=== PATIENT | male | born 1955 | race Two or more races ===

== ENCOUNTER 2024-08-27 02:42 | Inpatient (IN) | payer OTHER, MEDICAID ==
[2024-08-27] VITALS (9 sets, daily range): BP systolic 140–142; BP diastolic 17–78; PULSE 62–80; RESP 14–20; TEMP 97.3–98.2; O2SAT 95–100
[~2024-08-27] VITALS: Ht 30.5 cm; Wt 80.7 kg
[2024-08-27] MEDS ORDERED: ACETAMINOPHEN 325 MG TAB PO PRN (03:45)
[2024-08-27] MEDS ORDERED: HYDROcodone-ACET 5/325MG TAB PO PRN (03:45)
[2024-08-27] MEDS ORDERED: ONDANSETRON HCL 4 MG/2 ML VIAL IV PRN (03:45)
[2024-08-27] MEDS: DEXTROSE (50%) 50ML SYRG IV ONE ×2 (07:30→14:45)
[2024-08-27 09:05] LABS: Basophils # (auto) 0 10 ^3/uL (0-0.2); Basophils % (auto) 0.4 % (0.0-2.0); Eosinophils # (auto) 0.1 10 ^3/uL (0-0.8); Eosinophils % (auto) 2.1 % (0.0-7.0); Hematocrit 23.4 % (41.0-53.0); Hemoglobin 7.2 g/dL (13.5-17.5); Mean Corpuscular Hemoglobin 23.8 pg (28.0-32.0); Mean Corpuscular Hgb Conc. 30.7 g/dL (32.0-36.0); Mean Corpuscular Volume 77.5 fL (80.0-100.0); Monocytes # (auto) 0.5 10 ^3/uL (0-1.3); Monocytes % (auto) 7.8 % (0.0-12.0); Neutrophils # (auto) 5.1 10 ^3/uL (1.6-8.6); Neutrophils % (auto) 74.7 % (37.0-80.0); Nucleated Red Blood Cells % 0.2 %; Platelet Count (auto) 294 10^3/uL (140-450); Red Blood Cells 3.02 10^6/uL (4.5-5.90); Red Cell Distribution Width 18.1 % (11.8-14.3); White Blood Cell 6.8 10^3/uL (4.4-10.8)
[2024-08-27 09:49] LABS: Albumin 3.7 g/dL (3.2-4.8); Alkaline Phosphatase 75 U/L (46-116); Anion Gap 9 (5-15); Aspartate Aminotransferase < 8 U/L (13-40); BUN/Creatinine Ratio 8.5 (10.0-20.0); Bilirubin, Total 0.2 mg/dL (0.2-1.0); Blood Urea Nitrogen 30 mg/dL (9-23); Calcium 8.9 mg/dL (8.7-10.4); Carbon Dioxide 16 mmol/L (20-31); Chloride 117 mmol/L (98-107); Glucose 78 mg/dL (74-106); Potassium 4.8 mmol/L (3.5-5.1); Sodium 142 mmol/L (136-145); Total Protein 6.4 g/dL (5.7-8.2)
[2024-08-27 09:50] LABS: Alanine Aminotransferase < 9 U/L (7-40)
[2024-08-27] MEDS: DEXTROSE 10% 250 ML IV ONE (10:22)
[2024-08-27 10:23] LABS: % Iron Saturation 6.1 % (20-55)
[2024-08-27] MEDS: DEXTROSE 10% 1,000 ML IV SCH (10:41)
[2024-08-27] MEDS: FAMOTIDINE 20 MG TAB PO SCH (10:44)
[2024-08-27] MEDS: amLODIPine BESYLATE 5 MG TAB PO SCH (10:44)
[2024-08-27] MEDS: ATENOLOL 25 MG TAB PO SCH (10:45)
[2024-08-27] MEDS ORDERED: DEXTROSE (50%) 50ML SYRG IV PRN (15:45)
[2024-08-27] MEDS: ACCU-CHEK COMFORT CURVE STRIP VI SCH (18:12)
[2024-08-27] MEDS: ENOXAPARIN SOD 30 MG/0.3 ML SYRINGE SC ONE (20:26)
[2024-08-27] MEDS: ATORVASTATIN 20 MG TAB PO SCH (21:39)
[2024-08-28 01:00] VITALS: BP 137/67; PULSE 80; RESP 20; TEMP 98; O2SAT 98
[2024-08-28 05:30] VITALS: BP 137/67; PULSE 80; RESP 20; TEMP 98; O2SAT 98
[2024-08-28 08:00] VITALS: PULSE 68
[2024-08-28 09:00] VITALS: BP 146/68; PULSE 71; RESP 20; TEMP 98.1; O2SAT 97
[2024-08-28] MEDS: ENOXAPARIN SOD 30 MG/0.3 ML SYRINGE SC SCH (10:13)
[2024-08-28 13:00] VITALS: BP 149/70; PULSE 66; RESP 17; TEMP 98.1; O2SAT 99
[2024-08-28] MEDS ORDERED: SITA50TA PO (15:02)
[2024-08-28] MEDS ORDERED: SODI650T PO (16:55)
[2024-08-28] MEDS ORDERED: FERR-7 PO (16:55)
[2024-08-28 17:00] VITALS: BP 124/63; PULSE 62; RESP 18; TEMP 98.1; O2SAT 97
== END 2024-08-28 17:41 | disposition home health service (06) | DRG 639 ==
LOC: CENTRAL 04:40 → TELE-CENTR 05:25
PROVIDERS: ADMIT Hospitalist; ATTEND Hospitalist
DX: E11.649 Type 2 diabetes mellitus with hypoglycemia without coma (principal); N17.0 Acute kidney failure with tubular necrosis; E11.22 Type 2 diabetes mellitus with diabetic chronic kidney disease; D64.9 Anemia, unspecified; E78.5 Hyperlipidemia, unspecified; H54.8 Legal blindness, as defined in USA; I12.9 Hypertensive chronic kidney disease with stage 1 through stage 4 chronic kidney disease, or unspecified chronic kidney disease; N18.4 Chronic kidney disease, stage 4 (severe); Z79.84 Long term (current) use of oral hypoglycemic drugs; Z79.899 Other long term (current) drug therapy; Z79.4 Long term (current) use of insulin
CPT/HCPCS: 36415; 76775; 80053; 82728; 82962; 83036; 83540; 83550; 85025; G0378

== ENCOUNTER 2024-12-30 04:01 | Inpatient (IN) | payer OTHER, MEDICAID ==
[~2024-12-30] VITALS: Ht 172.7 cm; Wt 90.0 kg
[2024-12-30] VITALS (7 sets, daily range): BP systolic 145–157; BP diastolic 71–76; PULSE 70–83; RESP 15–18; TEMP 98.3–98.4; O2SAT 96–97
[~2024-12-30 04:01] MED LIST: FERR-7 PO; SITA50TA PO; SODI650T PO
--- NOTE | 2024-12-30 04:31 | ED.PDOC ---
Altered Mental Status HPI Comments 69-year-old male came to ER via EMS due to altered level of consciousness/hypoglycemia. Per EMS, patient picked up at home, at around 3:00 a.m., noted by that patient was acting altered and confused. Blood sugar taken was 37 so paramedics were called. Upon their arrival, blood sugar was 32 so patient was given D10 water. Upon arrival at the ER, blood sugar went up to 185 but patient is still slight confused at this time. Patient does have history of hypertension, diabetes, CKF and is legally blind Chief Complaint: Hypoglycemia Time Seen by MD: 04:29 Reviewed Notes: Health Specialist Notes Allergies: Coded Allergies: NO KNOWN ALLERGIES (Unverified , 08/27/24) Home Meds Active Scripts Sodium Bicarbonate (Sodium Bicarbonate) 650 Mg Tab, 650 MG PO BID for 30 Days, #60 TAB 3 Refills Prov:SUHAIL SMITH MD 08/28/24 Ferrous Sulfate (Iron) 325 Mg Tab, 325 MG PO DAILY for 30 Days, #30 TAB 3 Refills Prov:SUHAIL SMITH MD 08/28/24 Sitagliptin Phosphate (Januvia) 50 Mg Tab, 0.5 TAB PO DAILY, #30 TAB 1 Refill take 1/2 tablet (25mg) daily with breakfast. Prov:KIM HALLMAN MD 08/28/24 Information Source: Patient, Emergency Med Personnel Mode of Arrival: EMS Severity: Unable to Care for Self Timing: Minutes Duration: Since onset Prehospital treatment: IVF Quality: Decreased Alertness, Change in Behavior, Confusion History of: Diabetes Review of Systems REVIEW OF SYSTEMS: (+) patient still confused and disoriented at this time No fever, no chills, or fatigue HEENT: No sore throat, no earache, no congestion, no neck pain. Cardiac: No chest pain. No palpitations. Lungs: No shortness of breath, no cough. GI: No nausea, no vomiting, no diarrhea, no constipation, no abdominal pain : No dysuria, frequency, or urgency. No hematuria. Musculoskeletal: No joint pain , no joint swelling, no extremity edema. Skin: No rash, no itching. Neuro: No headache, no dizziness, no weakness Vital Signs Vital Signs Date Time Temp Pulse Resp B/P (MAP) Pulse Ox O2 Delivery O2 Flow Rate FiO2 12/30/24 14:00 77 16 167/79 (108) 95 12/30/24 12:00 98.1 98.1 12/30/24 10:00 Nasal Cannula* 2 28 Physical Exam General: Awake, alert and oriented. No acute distress. Skin: Skin in warm, dry and intact. Appropriate color for ethnicity. Nailbeds pink with no cyanosis. HEENT: The head is normocephalic and atraumatic. Neck: The neck is supple with normal range of motion. No JVD. Cardiac: Heart rate and rhythm are normal. No murmurs, gallops, or rubs are auscultated. Respiratory: No signs of respiratory distress. Lung sounds are clear in all lobes bilaterally without rales, ronchi, or wheezes. Abdominal: Abdomen is soft, non-tender without distention. Bowel sounds are present and normoactive in all four quadrants. Extremities: Upper and lower extremities are atraumatic in appearance without deformity or edema. Neurological: The patient is awake, alert and oriented to person, place, and time with normal speech. Speech is clear. There is no facial asymmetry. Patient is following commands. Upper and lower extremity strength intact. Psychiatric: Appropriate mood and affect. Good judgement and insight. No visual or auditory hallucinations. Past Medical History PAST MEDICAL HISTORY: CKF, DM, High Lipids, HTN Past Medical History (Other): Legally blind Surgical History: Denies all surgeries Family History Family History: Reviewed,noncontributory to illness Social History Smoker: Non-Smoker Alcohol: Denies ETOH Use Drugs: Denies Drug Use Lives In: Home Was a procedure done? Was a procedure done?: No Differential Diagnosis (ALOC) Differential Diagnosis: Dehydration, Hypoglycemia, Encephalopathy, Hypoxemia, Drug Overdose, ETOH Intoxication X-Ray, Labs, Meds, VS Vital Signs Date Time Temp Pulse Resp B/P (MAP) Pulse Ox O2 Delivery O2 Flow Rate FiO2 12/30/24 14:00 77 16 167/79 (108) 95 12/30/24 12:00 98.1 79 16 171/80 (110) 95 98.1 12/30/24 11:40 83 12/30/24 10:00 92 16 180/82 (114) 95 12/30/24 10:00 97 Nasal Cannula* 2 28 12/30/24 08:00 83 16 97 Nasal Cannula* 2 28 12/30/24 08:00 79 12/30/24 08:00 98.7 81 16 154/75 (101) 95 98.7 12/30/24 05:19 93.6 93.6 12/30/24 05:00 75 16 96 Room Air* 0 21 21 12/30/24 04:01 98.0 66 16 141/72 (95) 100 Lab Test 12/30/24 14:03 12/30/24 13:12 12/30/24 11:03 12/30/24 10:07 Range/Units POC Glucose 103 33 *L 79 37 *L 70-106 mg/dl Test 12/30/24 08:55 12/30/24 08:01 12/30/24 07:07 12/30/24 06:45 Range/Units Urine Color Light-yellow Yellow Urine Clarity Clear Clear Urine pH 6.0 5.0-9.0 Urine Specific [place] 1.009 1.001-1.035 Urine Protein 1+ H Negative Urine Ketones Negative Negative Urine Blood Negative Negative /uL Urine Nitrite Negative Negative Urine Bilirubin Negative Negative Urine Urobilinogen Normal Negative mg/dL Urine Leukocyte Esterase Negative Negative /uL Urine RBC <1 0 - 3 /hpf Urine Microscopic WBC < 1 0-3 /HPF Urine Squamous Epithelial Cells None seen <5 /hpf Urine Bacteria None seen None Seen /hpf Urine Glucose Normal Normal mg/dL POC Glucose 99 77 70-106 mg/dl Influenza Type A Antigen Negative Negative Influenza Type B Antigen Negative Negative SARS-CoV-2 Antigen (Rapid) Negative NEGATIVE Test 12/30/24 06:17 12/30/24 06:13 Range/Units White Blood Count 11.6 H 4.4-10.8 10^3/uL Red Blood Count 2.47 L 4.5-5.90 10^6/uL Hemoglobin 6.1 *L 13.5-17.5 g/dL Hematocrit 19.3 L 41.0-53.0 % Mean Corpuscular Volume 77.9 L 80.0-100.0 fL Mean Corpuscular Hemoglobin 24.6 L 28.0-32.0 pg Mean Corpuscular Hemoglobin Concent 31.5 L 32.0-36.0 g/dL Red Cell Distribution Width 22.0 H 11.8-14.3 % Platelet Count 344 140-450 10^3/uL Mean Platelet Volume 7.9 6.9-10.8 fL Neutrophils (%) (Auto) 37.0-80.0 % Lymphocytes (%) (Auto) 10.0-50.0 % Monocytes (%) (Auto) 0.0-12.0 % Basophils (%) (Auto) 0.0-2.0 % Neutrophils # (Auto) 1.6-8.6 10 ^3/uL Lymphocytes # (Auto) 0.4-5.4 10 ^3/uL Monocytes # (Auto) 0-1.3 10 ^3/uL Differential Total Cells Counted 100.0 100 Neutrophils % (Manual) 83 H 37.0-80.0 Band Neutrophils % (Manual) 4 Lymphocytes % (Manual) 5 L 10.0-50.0 Monocytes % (Manual) 7 0-12 Eosinophils % (Manual) 0 0-7 Basophils % (Manual) 0 0.0-2.0 Metamyelocytes % (manual) 0 Myelocytes % (Manual) 0 Promyelocytes % (Manual) 0 Blast Cells % (Manual) 0 Reactive Lymphocytes 1 Platelet Estimate Adequate Polychromasia Slight Hypochromasia (manual) Slight Anisocytosis (manual) Moderate Microcytosis Slight Sodium Level 137 136-145 mmol/L Potassium Level 4.0 3.5-5.1 mmol/L Chloride Level 104 98-107 mmol/L Carbon Dioxide Level 23 20-31 mmol/L Anion Gap 10 5-15 Blood Urea Nitrogen 79 H 9-23 mg/dL Creatinine 4.90 H 0.700-1.30 mg/dL Glomerular Filtration Rate Calc 12 >90 mL/min BUN/Creatinine Ratio 16.1 10.0-20.0 Serum Glucose 101 74-106 mg/dL Lactic Acid Level 1.3 0.4-2.0 mmol/L Calcium Level 8.6 L 8.7-10.4 mg/dL Total Bilirubin < 0.2 L 0.2-1.0 mg/dL Aspartate Amino Transferase (AST) 9 L 13-40 U/L Alanine Aminotransferase (ALT) < 9 7-40 U/L Alkaline Phosphatase 60 46-116 U/L Total Protein 6.6 5.7-8.2 g/dL Albumin 3.9 3.2-4.8 g/dL POC Glucose 98 70-106 mg/dl Current Medications Medications (Trade) Dose Ordered Sig/Jazmyn Route Start Time Stop Time Status Last Admin Glucagon (Glucagen) 1 mg ONCE ONCE IV 12/30/24 04:45 12/30/24 04:46 DC 12/30/24 04:51 Dextrose 50 ml ONCE ONCE IV 12/30/24 04:45 12/30/24 04:46 DC 12/30/24 04:52 Sodium Chloride 1,000 ml @ 1,000 mls/hr Q1H ONCE IV 12/30/24 05:45 12/30/24 06:44 DC 12/30/24 06:15 Dextrose 1,000 ml @ 50 mls/hr Q20H ONCE IV 12/30/24 07:30 12/30/24 13:20 DC 12/30/24 07:45 Dextrose 50 ml ONCE ONCE IV 12/30/24 10:15 12/30/24 10:16 DC 12/30/24 10:17 Acetaminophen (Tylenol Tablet) 650 mg ONCE ONCE PO 12/30/24 13:15 12/30/24 13:16 DC 12/30/24 13:21 Dextrose 50 ml ONCE ONCE IV 12/30/24 13:30 12/30/24 13:31 DC 12/30/24 13:23 Dextrose 1,000 ml @ 75 mls/hr [id number] IV 12/30/24 13:30 12/30/24 14:01 DC 12/30/24 13:44 Dextrose 1,000 ml @ 75 mls/hr [id number] IV 12/30/24 14:00 12/30/24 14:20 [place] [id number] Ph: [phone] DIAGNOSTIC IMAGING Diagnostic Imaging Report : [id number] Signed PATIENT: ELO GOETZCCT: [id number] UNIT: [id number] : 1955 LOC: ER ROOM / BED: / AGE / SEX: 69 / M ADM STATUS: REG ER SERVICE [id number] ORDERING PHYSICIAN: EDEL LOVE MD PROCEDURE(s): CXR1 - CHEST XRAY 1 VIEW REASON: Suspected Sepsis ORDER NUMBER(s): [id number], ACCESSION NUMBER(s): [id number] CHEST RADIOGRAPH Indication: Suspected Sepsis Technique: Single frontal view of the chest was obtained Comparison: None IMPRESSION: Heart appears normal in size. The lungs appear clear without focal airspace opacity, effusion, or pneumothorax ATED BY: PARISH MARTINEZ MD DICTATED DATE/TIME: 12/30/24557 SIGNED BY: PARISH MARTINEZ MD SIGNED DATE/TIME: 12/30/24557 Images Reviewed?: Images reviewed and evaluated by me Time of 1ST Reevaluation: 07:03 Reevaluation 1ST: Unchanged Time of 2ND Reevaluation: 09:03 (The case was discussed with the admitting team (HPI, physical exam, labs and diagnostic tests that were available at the time o f disposition, ED course, treatment plan) on the phone. They agreed to admit the patient to their service and assume care of this patient from this point forward. Dr. Cadena) Reevaluation 2ND: Improved Patient Education/Counseling: Diagnosis, Treatment Family Education/Counseling: Diagnosis, Treatment Comments Dr. Pina admitted this patient earlier. Patient continued to have episodes of hypoglycemia. Patient was placed on D10 drip. Patient was given multiple D50 amps. Patient was found to be anemic. Patient was consented for blood transfusion. Patient had blood transfusions in the past recently last month. He said he has been having hypothermia since he got his last blood transfusion at [facility]. Patient denies any active pain anywhere. Departure 1 Departure Time of Disposition: 05:31 Impression: Primary Impression: Hypoglycemia Additional Impressions: Hypothermia Symptomatic anemia End stage renal disease Disposition: ADMITTED INPATIENT Admit to: Tele Condition: Guarded Discharged With: Self Comments 69-year-old male who presents to the emergency department with low blood sugar after taking glipizide. During the ED observation patient was found to be hypothermic with a with a temperature of 93.6. Warming measures initiated. Labs, imaging pending. Critical Care Note Critical Care Time?: Yes (55 min-critical care time only) Stability Stability form required: No Heart Score Heart Score: Heart Score Response (Comments) Value History Moderate Suspicious 1 EKG Normal 0 Age >65 2 Risk Factors >3 or Hx ASHD 2 Troponin Normal limit 0 Total 5 I personally scribed for EDEL LOVE MD ([email or web address]) on 12/30/24 at 04:31. Electronically submitted by Tylor Brand ([email or web address]). I personally scribed for JOSE C BACK DO ([email or web address]) on 12/30/24 at 07:03. Electronically submitted by Jj Lozano ([email or web address]). EDEL LOVE MD Dec 30, 2024 04:31 JOSE C BACK DO Dec 30, 2024 06:22
[2024-12-30] MEDS: STERILE WATER 10 ML ONE (04:50)
[2024-12-30] MEDS: GLUCAGON EMERG KIT 1mg/1ml IV ONE (04:51)
[2024-12-30] MEDS: DEXTROSE (50%) 50ML SYRG IV ONE ×6 (04:52→23:16)
--- NOTE | 2024-12-30 06:01 | DVH ---
CHEST RADIOGRAPH Indication: Suspected Sepsis Technique: Single frontal view of the chest was obtained Comparison: None IMPRESSION: Heart appears normal in size. The lungs appear clear without focal airspace opacity, effusion, or pn eumothorax
[2024-12-30] MEDS: SODIUM CHLORIDE 0.9% 1,000 ML IV ONE (06:15)
[2024-12-30 06:48] LABS: Hematocrit 19.3 % (41.0-53.0); Mean Corpuscular Hemoglobin 24.6 pg (28.0-32.0); Mean Corpuscular Hgb Conc. 31.5 g/dL (32.0-36.0); Mean Corpuscular Volume 77.9 fL (80.0-100.0); Platelet Count (auto) 344 10^3/uL (140-450); Red Blood Cells 2.47 10^6/uL (4.5-5.90); White Blood Cell 11.6 10^3/uL (4.4-10.8)
[2024-12-30 06:51] LABS: Albumin 3.9 g/dL (3.2-4.8); Alkaline Phosphatase 60 U/L (46-116); Anion Gap 10 (5-15); BUN/Creatinine Ratio 16.1 (10.0-20.0); Carbon Dioxide 23 mmol/L (20-31); Chloride 104 mmol/L (98-107); Glucose 101 mg/dL (74-106); Sodium 137 mmol/L (136-145); Total Protein 6.6 g/dL (5.7-8.2)
[2024-12-30 06:54] LABS: Alanine Aminotransferase < 9 U/L (7-40); Aspartate Aminotransferase 9 U/L (13-40); Bilirubin, Total < 0.2 mg/dL (0.2-1.0); Blood Urea Nitrogen 79 mg/dL (9-23); Calcium 8.6 mg/dL (8.7-10.4)
[2024-12-30 07:15] LABS: Hemoglobin 6.1 g/dL (13.5-17.5)
[2024-12-30 07:16] LABS: Basophils % (manual) 0 (0.0-2.0); Blast Cells 0; Eosinophils % (manual) 0 (0-7); Metamyelocytes % 0; Myelocytes % 0; Promyelocytes % 0
[2024-12-30] MEDS: D5W 5% 1,000 ML IV ONE (07:45)
[2024-12-30 08:02] LABS: Band Neutrophils % (manual) 4; Lymphocytes % (manual) 5 (10.0-50.0); Monocytes % (manual) 7 (0-12); Reactive Lymphocytes 1
[2024-12-30 08:04] LABS: Anisocytosis Moderate; Hypochromia Slight; Platelet Estimate Adequate; Polychromasia Slight
[2024-12-30 08:13] LABS: COVID19 ANTIGEN SOFIA FIA NEGATIVE (NEGATIVE); Rapid Influenza A Negative (Negative); Rapid Influenza B Negative (Negative)
[2024-12-30 09:06] LABS: Urine Bacteria None Seen /hpf (None Seen)
[2024-12-30 09:33] LABS: Urine Blood Negative /uL (Negative); Urine Clarity Clear (Clear); Urine Color Light-Yellow (Yellow); Urine Protein, UAD 1+ (Negative); Urine Specific Gravity 1.009 (1.001-1.035); Urine Squamous Epithelial Cell None Seen /hpf (<5); Urine Urobilinogen Normal (Negative); Urine WBC < 1 /HPF (0-3)
[2024-12-30] MEDS: ACETAMINOPHEN 325 MG TAB PO ONE ×2 (13:21→15:05)
[2024-12-30] MEDS: D5W 5% 1,000 ML IV SCH (13:44)
[2024-12-30] MEDS: DEXTROSE 10% 1,000 ML IV SCH (14:20)
[2024-12-30] MEDS ORDERED: cloNIDine HCL 0.1 MG TAB PO PRN (14:45)
[2024-12-30] MEDS ORDERED: MORPHINE SULFATE INJ 2 MG/ml SYRG IV PRN (14:45)
[2024-12-30] MEDS ORDERED: NITROGLYCERIN 0.4 MG SL TAB SL PRN (14:45)
--- NOTE | 2024-12-30 14:51 | DVHHP2 ---
History of Present Illness Reason for Visit: Low blood sugars History of Present Illness 69-year-old male came to ER via EMS due to altered level of consciousness/hypoglycemia. Per EMS, patient picked up at home, at around 3:00 a.m., noted by that patient was acting altered and confused. Blood sugar taken was 37 so paramedics were called. Upon their arrival, blood sugar was 32 so patient was given D10 water. Upon arrival at the ER, blood sugar went up to 185 but patient is still slight confused at this time. Patient does have history of hypertension, diabetes, CKF and is legally blind. He is given oral diet and D5 IV fluids. Despite this his blood sugars are still in the 70-90 range. He is also noted to be anemic with a hemoglobin of 6 spine when. Therefore he is being admitted to the hospital for further evaluation and management. Patient had a similar episode during his last hospitalization here in and of now number. At that time patient was advised to stop his metformin and glipizide. However it appears patient taking those for his blood pressure problems. Past Medical History Diabetes mellitus type 2, chronic kidney disease stage 3, anemia of chronic kidney disease, hypoglycemia, legally blind Past Surgical History: None Family History: DM, Hypertension Smoke: No ALCOHOL: rare Lives: with Family Review of Systems Review of Systems Patient appears somewhat disoriented but when asked to denied any chest pain shortness for breath. Allergies: Coded Allergies: NO KNOWN ALLERGIES (Unverified , 08/27/24) Medications Current Medications Medications Dose Ordered Sig/Jazmyn Route Start Time Stop Time Status Last Admin Dose Admin Dextrose 1,000 ml @ 75 mls/hr [id number] IV 12/30/24 14:00 12/30/24 14:20 75 MLS/HR Nitroglycerin 0.4 mg Q5MINP PRN SL 12/30/24 14:45 UNV Morphine Sulfate 2 mg Q30M PRN IV 12/30/24 14:45 UNV Ferrous Sulfate 300 mg DAILY PO 12/31/24 10:00 UNV Ascorbic Acid 500 mg DAILY PO 12/31/24 10:00 UNV Nifedipine 60 mg DAILY PO 12/31/24 10:00 UNV Clonidine HCl 0.1 mg Q4HP PRN PO 12/30/24 14:45 UNV Pantoprazole Sodium 40 mg BID@0600,1700 PO 12/30/24 17:00 UNV Exam Vital Signs Vital Signs Date Time Temp Pulse Resp B/P (MAP) Pulse Ox O2 Delivery O2 Flow Rate FiO2 12/30/24 14:00 77 16 167/79 (108) 95 12/30/24 12:00 98.1 98.1 12/30/24 10:00 Nasal Cannula* 2 28 Exam Oriented to self. Comfortable in bed without distress. HEENT neck supple no JVD pupils equal round react to light. Heart regular rate and rhythm S1 plus S2 no murmurs. Lungs fair air movement poor inspiratory effort no rales wheezes. Abdomen obese soft nontender positive bowel sounds nondistended. Extremities has a pitting edema on his feet. Positive distal pedal pulses. Neurologically oriented to self but able to move all four extremities. No gross focal deficits noted Labs/Xrays Labs Test 12/30/24 14:03 12/30/24 08:55 12/30/24 06:45 12/30/24 06:17 Range/Units POC Glucose 103 70-106 mg/dl Urine Color Light-yellow Yellow Urine Clarity Clear Clear Urine pH 6.0 5.0-9.0 Urine Specific [place] 1.009 1.001-1.035 Urine Protein 1+ H Negative Urine Ketones Negative Negative Urine Blood Negative Negative /uL Urine Nitrite Negative Negative Urine Bilirubin Negative Negative Urine Urobilinogen Normal Negative mg/dL Urine Leukocyte Esterase Negative Negative /uL Urine RBC <1 0 - 3 /hpf Urine Microscopic WBC < 1 0-3 /HPF Urine Squamous Epithelial Cells None seen <5 /hpf Urine Bacteria None seen None Seen /hpf Urine Glucose Normal Normal mg/dL Influenza Type A Antigen Negative Negative Influenza Type B Antigen Negative Negative SARS-CoV-2 Antigen (Rapid) Negative NEGATIVE White Blood Count 11.6 H 4.4-10.8 10^3/uL Red Blood Count 2.47 L 4.5-5.90 10^6/uL Hemoglobin 6.1 *L 13.5-17.5 g/dL Hematocrit 19.3 L 41.0-53.0 % Mean Corpuscular Volume 77.9 L 80.0-100.0 fL Mean Corpuscular Hemoglobin 24.6 L 28.0-32.0 pg Mean Corpuscular Hemoglobin Concent 31.5 L 32.0-36.0 g/dL Red Cell Distribution Width 22.0 H 11.8-14.3 % Platelet Count 344 140-450 10^3/uL Mean Platelet Volume 7.9 6.9-10.8 fL Neutrophils (%) (Auto) 37.0-80.0 % Lymphocytes (%) (Auto) 10.0-50.0 % Monocytes (%) (Auto) 0.0-12.0 % Basophils (%) (Auto) 0.0-2.0 % Neutrophils # (Auto) 1.6-8.6 10 ^3/uL Lymphocytes # (Auto) 0.4-5.4 10 ^3/uL Monocytes # (Auto) 0-1.3 10 ^3/uL Differential Total Cells Counted 100.0 100 Neutrophils % (Manual) 83 H 37.0-80.0 Band Neutrophils % (Manual) 4 Lymphocytes % (Manual) 5 L 10.0-50.0 Monocytes % (Manual) 7 0-12 Eosinophils % (Manual) 0 0-7 Basophils % (Manual) 0 0.0-2.0 Metamyelocytes % (manual) 0 Myelocytes % (Manual) 0 Promyelocytes % (Manual) 0 Blast Cells % (Manual) 0 Reactive Lymphocytes 1 Platelet Estimate Adequate Polychromasia Slight Hypochromasia (manual) Slight Anisocytosis (manual) Moderate Microcytosis Slight Sodium Level 137 136-145 mmol/L Potassium Level 4.0 3.5-5.1 mmol/L Chloride Level 104 98-107 mmol/L Carbon Dioxide Level 23 20-31 mmol/L Anion Gap 10 5-15 Blood Urea Nitrogen 79 H 9-23 mg/dL Creatinine 4.90 H 0.700-1.30 mg/dL Glomerular Filtration Rate Calc 12 >90 mL/min BUN/Creatinine Ratio 16.1 10.0-20.0 Serum Glucose 101 74-106 mg/dL Lactic Acid Level 1.3 0.4-2.0 mmol/L Calcium Level 8.6 L 8.7-10.4 mg/dL Total Bilirubin < 0.2 L 0.2-1.0 mg/dL Aspartate Amino Transferase (AST) 9 L 13-40 U/L Alanine Aminotransferase (ALT) < 9 7-40 U/L Alkaline Phosphatase 60 46-116 U/L Total Protein 6.6 5.7-8.2 g/dL Albumin 3.9 3.2-4.8 g/dL Assessment/Plan Assessment/Plan We will admit him to step-down unit with the frequent blood sugar monitoring till his blood sugars normalized. Start him on D10 IV glucose solution to keep blood sugars in the normal range. Nephrology consultation. Transfuse 1-2 units of packed red blood cells given his anemia. We will send a stool for occult blood. Start him on Protonix. Calcium channel sharonda for blood pressure control. Otherwise continue rest of supportive care and treatment. His further clinical management per clinical course and pending evaluations and recommendati ons from the consultants. Discussed with the patient's/nurse regarding care plan at bedside. Plan discussed with: Patient, Other My Orders Orders - KIM HALLMAN MD Procedure Category Date Status Time Renal DIET 12/30/24 Transmitted Standard(2gna,3gk,Lopho) Dinner Stool Occult Blood LAB 12/30/24 Logged 14:37 *Dr. Younger Group CONS 12/30/24 Transmitted -[place] 14:37 Accucheck BD 12/30/24 Transmitted 14:37 Accucheck BD 12/30/24 Transmitted 16:37 Accucheck BD 12/30/24 Transmitted 18:37 Accucheck BD 12/30/24 Transmitted 20:37 Accucheck BD 12/30/24 Transmitted 22:37 Accucheck BD 12/31/24 Transmitted 00:37 Accucheck BD 12/31/24 Transmitted 02:37 Accucheck BD 12/31/24 Transmitted 04:37 Accucheck BD 12/31/24 Transmitted 06:37 Accucheck BD 12/31/24 Transmitted 08:37 Accucheck BD 12/31/24 Transmitted 10:37 Accucheck BD 12/31/24 Transmitted 12:37 Accucheck BD 12/31/24 Transmitted 14:37 Accucheck BD 12/31/24 Transmitted 16:37 Accucheck BD 12/31/24 Transmitted 18:37 Accucheck BD 12/31/24 Transmitted 20:37 Accucheck BD 12/31/24 Transmitted 22:37 Nitroglycerin PHA 12/30/24 Logged Sublingual (Ntrostat 14:45 Morphine Sulfate PHA 12/30/24 Logged Injection 14:45 Stat Ekg For Chest MARCIA 12/30/24 In Process Pain 14:37 Notify Of Changes MARCIA 12/30/24 In Process From Base 14:37 Security Project Manager For MARCIA 12/30/24 In Process 24 Hours 14:37 Emergency Dysrhythmia MARCIA 12/30/24 In Process Protocol 14:37 Rhythm Strips Once MARCIA 12/30/24 In Process Every Shift 14:37 Oxygen By Nasal RT 12/30/24 Transmitted Cannula 14:37 Ferrous Sulfate Liquid PHA 12/31/24 Logged 10:00 Ascorbic Acid Tablet PHA 12/31/24 Logged (Vitamin C Tablet) 10:00 Nifedipine Er PHA 12/31/24 Logged (Procardia Xl 10:00 Nifedipine Er PHA 12/30/24 Logged (Procardia Xl 14:45 Clonidine Hcl Tablet PHA 12/30/24 Logged (Catapres Tablet) 14:45 Pantoprazole Tablet PHA 12/30/24 Logged (Protonix Tablet) 17:00 Admit ADMIT 12/30/24 Transmitted 14:41 Packedcell-Noactive BBK 12/30/24 Transmitted Bleeding 14:41 Type And Screen BBK 12/30/24 Transmitted 14:41 Diphenhdramine Liquid PHA 12/30/24 Logged (Benadryl Liquid) 14:45 Acetaminophen Extra PHA 12/30/24 Transmitted Strength 14:45 Problem List: (1) Acute kidney injury (2) Hypoglycemia (3) Hypothermia (4) Symptomatic anemia KIM HALLMAN MD Dec 30, 2024 14:51
[2024-12-30] MEDS: NIFEdipine ER 30 MG TAB PO ONE (15:07)
[2024-12-30] MEDS: diphenhdrAMINE HCL 12.5 MG/5 ML UD PO ONE (15:07)
[2024-12-30] MEDS: PANTOPRAZOLE 40 MG TAB PO SCH (17:00)
[2024-12-30] MEDS ORDERED: ONDANSETRON HCL 4 MG/2 ML VIAL IV PRN (21:30)
[2024-12-30] MEDS ORDERED: HYDROcodone-ACET 5/325MG TAB PO PRN (21:30)
[2024-12-30] MEDS: ACETAMINOPHEN 325 MG TAB PO PRN (21:41)
[2024-12-30] MEDS ORDERED: SODIUM CHLORIDE 0.9% 1,000 ML IV ONE (22:45)
[2024-12-30] MEDS ORDERED: VANCOMYCIN PER PHARMACY 1,000 MG IV SCH ×3 (23:30→23:45)
[2024-12-30] MEDS: cefTRIAXone 1GM/50ML D5W 50 ML IV SCH (23:51)
[2024-12-31] VITALS (7 sets, daily range): BP systolic 139–155; BP diastolic 68–78; PULSE 73–88; RESP 9–17; TEMP 97.8–98.7; O2SAT 94
[2024-12-31] MEDS: VANCOMYCIN 1GM/250ML KIT 250 ML IV SCH (00:27)
[2024-12-31] MEDS: ACCU-CHEK COMFORT CURVE STRIP VI SCH ×2 (01:00→10:52)
[2024-12-31] MEDS: HYDROcodone-ACET 5/325MG TAB PO PRN (01:10)
[2024-12-31 04:22] LABS: Basophils # (auto) 0 10 ^3/uL (0-0.2); Eosinophils # (auto) 0.1 10 ^3/uL (0-0.8); Eosinophils % (auto) 1.2 % (0.0-7.0); Lymphocytes # (auto) 0.5 10 ^3/uL (0.4-5.4); Monocytes # (auto) 0.8 10 ^3/uL (0-1.3)
[2024-12-31 04:25] LABS: Basophils % (auto) 0.3 % (0.0-2.0); Hematocrit 17.3 % (41.0-53.0); Lymphocytes % (auto) 5.2 % (10.0-50.0); Mean Corpuscular Volume 76.4 fL (80.0-100.0); Monocytes % (auto) 8.8 % (0.0-12.0); Neutrophils # (auto) 7.6 10 ^3/uL (1.6-8.6); Neutrophils % (auto) 84.5 % (37.0-80.0); Platelet Count (auto) 297 10^3/uL (140-450); Red Blood Cells 2.27 10^6/uL (4.5-5.90); Red Cell Distribution Width 21.1 % (11.8-14.3)
[2024-12-31 04:28] LABS: Hemoglobin 5.9 g/dL (13.5-17.5)
[2024-12-31 04:41] LABS: Alkaline Phosphatase 46 U/L (46-116); Anion Gap 10 (5-15); BUN/Creatinine Ratio 15.8 (10.0-20.0); Carbon Dioxide 23 mmol/L (20-31); Chloride 100 mmol/L (98-107); Potassium 4.1 mmol/L (3.5-5.1)
[2024-12-31 04:57] LABS: Alanine Aminotransferase < 9 U/L (7-40); Albumin 3.1 g/dL (3.2-4.8); Aspartate Aminotransferase < 8 U/L (13-40); Bilirubin, Total 0.2 mg/dL (0.2-1.0); Blood Urea Nitrogen 70 mg/dL (9-23); Calcium 8.2 mg/dL (8.7-10.4); Glucose 154 mg/dL (74-106); Sodium 133 mmol/L (136-145); Total Protein 5.4 g/dL (5.7-8.2)
[2024-12-31] MEDS: FUROSEMIDE 20 MG/2 ML VIAL IV ONE (07:21)
[2024-12-31] MEDS ORDERED: FUROSEMIDE 20 MG/2 ML VIAL IV ONE (09:00)
[2024-12-31] MEDS: FERROUS SULFATE 300 MG/5 ML ORAL LIQ PO SCH (10:45)
[2024-12-31] MEDS: ASCORBIC ACID 500 MG TAB PO SCH (10:45)
[2024-12-31] MEDS: NIFEdipine ER 30 MG TAB PO SCH (10:46)
[2024-12-31 13:16] LABS: Hematocrit 27.7 % (41.0-53.0); Hemoglobin 8.7 g/dL (13.5-17.5)
--- NOTE | 2024-12-31 15:05 | DVHINCON2 ---
Date of service: Dec 31, 2024 Reason for Consultation cheng History of Present Illness 69 years old male past medical history of Chronic kidney disease stage 4, diabetes, anemia, hypertension, legally blind presented with chief complaints of altered mental status found to have low blood sugar as low as 37 on arrival pat ient found to have hemoglobin in 5 to 6 range needing blood transfusions nephrology consulted for acute kidney injury Past Medical History As per HPI Allergies: Coded Allergies: NO KNOWN ALLERGIES (Unverified , 08/27/24) Home Meds Active Scripts Sodium Bicarbonate (Sodium Bicarbonate) 650 Mg Tab, 650 MG PO BID for 30 Days, #60 TAB 3 Refills Prov:SUHAIL SMITH MD 08/28/24 Ferrous Sulfate (Iron) 325 Mg Tab, 325 MG PO DAILY for 30 Days, #30 TAB 3 Refills Prov:SUHAIL SMITH MD 08/28/24 Sitagliptin Phosphate (Januvia) 50 Mg Tab, 0.5 TAB PO DAILY, #30 TAB 1 Refill take 1/2 tablet (25mg) daily with breakfast. Prov:KIM HALLMAN MD 08/28/24 Current Medications Current Medications Medications (Trade) Dose Ordered Sig/Jazmyn Route PRN Reason Start Time Stop Time Status Last Admin Ferrous Sulfate 300 mg DAILY PO 12/31/24 10:00 12/31/24 10:45 Ascorbic Acid (Vitamin C Tablet) 500 mg DAILY PO 12/31/24 10:00 12/31/24 10:45 Nifedipine (Procardia Xl (Time-Release)) 60 mg DAILY PO 12/31/24 10:00 12/31/24 10:46 Pantoprazole Sodium (Protonix Tablet) 40 mg BID@0600,1700 PO 12/30/24 17:00 12/31/24 06:26 Acetaminophen/ Hydrocodone Bitart ([place] 5/325MG Tab) 1 tab Q6HPRN PRN PO PAIN SCALE 1 THRU 6 12/30/24 21:30 12/30/24 21:38 DC Acetaminophen (Tylenol Tablet) 650 mg Q6HPRN PRN PO PAIN SCALE 1-3 OR TEMP>100.4 12/30/24 21:30 12/31/24 06:33 Ondansetron HCl (Zofran) 4 mg Q6HPRN PRN IV NAUSEA / VOMITING 12/30/24 21:30 Acetaminophen/ Hydrocodone Bitart ([place] 5/325MG Tab) 1 tab Q6HPRN PRN PO PAIN SCALE 4-6 12/30/24 21:45 12/31/24 01:10 Vancomycin HCl 250 ml @ 166.667 mls/hr Q2H IV 12/31/24 00:00 12/31/24 03:29 DC 12/31/24 03:06 Ceftriaxone Sodium 50 ml @ 100 mls/hr DAILY@09 IV 12/30/24 23:00 12/31/24 10:38 Vancomycin HCl 150 ml @ 100 mls/hr PER PHARMACY IV 12/30/24 23:30 12/30/24 23:22 DC Vancomycin HCl 150 ml @ 100 mls/hr PER PHARMACY IV 12/30/24 23:30 12/30/24 23:39 DC Diagnostic Test (Pha) (Accu-Chek Comfort Curve T) 1 strip Q2HR 12/31/24 01:00 12/31/24 08:00 DC 12/31/24 08:32 Diagnostic Test (Pha) (Accu-Chek Comfort Curve T) 1 strip Q3HR 12/31/24 10:00 12/31/24 14:24 DC 12/31/24 12:39 Vancomycin HCl 0 ml @ 0 mls/hr PER PHARMACY IV 12/30/24 23:45 Family History: Patient reports no known family medical history. Social History Denies any Review of Systems As per HPI H&P Exam Vital Signs/I&O Vital Sign Date Time Temp Pulse Resp B/P (MAP) Pulse Ox O2 Delivery O2 Flow Rate FiO2 12/31/24 11:00 79 15 156/75 (102) 99 12/31/24 10:36 98.5 98.5 12/31/24 08:00 Nasal Cannula* 2 28 Intake and Output 12/30/24 12/31/24 19:00 07:00 Intake Total 900 ml 2272 ml Output Total 50 ml Balance 900 ml 2222 ml Intake Oral 30 ml IV Total 600 ml 1155 ml Blood Product 600 ml Other 300 ml 487 ml Output Urine Total 50 ml Physical Exam General-not in any distress HEENT-normocephalic, patient is blind Respiratory-fair air entry bilateral, [id number] heard, no murmurs appreciated Abdominal-soft, nontender, nondistended Musculoskeletal-no pedal edema, no calf tenderness Genitourinary-deferred Neuro-- alert oriented x3, Psychiatric-not agitated, cooperative, Labs/Diagnostic Data Labs/Diagnostic Data Laboratory Tests Test 12/31/24 14:07 12/31/24 12:57 12/31/24 12:26 12/31/24 10:51 Range/Units POC Glucose 183 H 208 H 186 H 70-106 mg/dl Hemoglobin 8.7 #L 13.5-17.5 g/dL Hematocrit 27.7 #L 41.0-53.0 % Test 12/31/24 08:26 12/31/24 04:03 12/31/24 03:30 12/30/24 23:16 Range/Units POC Glucose 144 H 140 H 70-106 mg/dl White Blood Count 9.0 4.4-10.8 10^3/uL Red Blood Count 2.27 L 4.5-5.90 10^6/uL Hemoglobin 5.9 *L 13.5-17.5 g/dL Hematocrit 17.3 #L 41.0-53.0 % Mean Corpuscular Volume 76.4 L 80.0-100.0 fL Mean Corpuscular Hemoglobin 26.0 L 28.0-32.0 pg Mean Corpuscular Hemoglobin Concent 34.0 32.0-36.0 g/dL Red Cell Distribution Width 21.1 H 11.8-14.3 % Platelet Count 297 140-450 10^3/uL Mean Platelet Volume 7.2 6.9-10.8 fL Neutrophils (%) (Auto) 84.5 H 37.0-80.0 % Lymphocytes (%) (Auto) 5.2 L 10.0-50.0 % Monocytes (%) (Auto) 8.8 0.0-12.0 % Eosinophils (%) (Auto) 1.2 0.0-7.0 % Basophils (%) (Auto) 0.3 0.0-2.0 % Neutrophils # (Auto) 7.6 1.6-8.6 10 ^3/uL Lymphocytes # (Auto) 0.5 0.4-5.4 10 ^3/uL Monocytes # (Auto) 0.8 0-1.3 10 ^3/uL Eosinophils # (Auto) 0.1 0-0.8 10 ^3/uL Basophils # (Auto) 0 0-0.2 10 ^3/uL Nucleated Red Blood Cells 0.0 % Sodium Level 133 L 136-145 mmol/L Potassium Level 4.1 3.5-5.1 mmol/L Chloride Level 100 98-107 mmol/L Carbon Dioxide Level 23 20-31 mmol/L Anion Gap 10 5-15 Blood Urea Nitrogen 70 H 9-23 mg/dL Creatinine 4.43 H 0.700-1.30 mg/dL Glomerular Filtration Rate Calc 14 >90 mL/min BUN/Creatinine Ratio 15.8 10.0-20.0 Serum Glucose 154 H 74-106 mg/dL Lactic Acid Level 0.6 0.6 0.4-2.0 mmol/L Calcium Level 8.2 L 8.7-10.4 mg/dL Total Bilirubin 0.2 0.2-1.0 mg/dL Aspartate Amino Transferase (AST) < 8 L 13-40 U/L Alanine Aminotransferase (ALT) < 9 7-40 U/L Alkaline Phosphatase 46 46-116 U/L Total Protein 5.4 L 5.7-8.2 g/dL Albumin 3.1 L 3.2-4.8 g/dL B-Type Natriuretic Peptide 1517.85 0-100 pg/mL Test 12/30/24 23:12 12/30/24 19:56 12/30/24 16:13 12/30/24 14:03 Range/Units POC Glucose 112 H 113 H 79 103 70-106 mg/dl Test 12/30/24 13:12 12/30/24 11:03 12/30/24 10:07 12/30/24 08:55 Range/Units POC Glucose 33 *L 79 37 *L 70-106 mg/dl Urine Color Light-yellow Yellow Urine Clarity Clear Clear Urine pH 6.0 5.0-9.0 Urine Specific [place] 1.009 1.001-1.035 Urine Protein 1+ H Negative Urine Ketones Negative Negative Urine Blood Negative Negative /uL Urine Nitrite Negative Negative Urine Bilirubin Negative Negative Urine Urobilinogen Normal Negative mg/dL Urine Leukocyte Esterase Negative Negative /uL Urine RBC <1 0 - 3 /hpf Urine Microscopic WBC < 1 0-3 /HPF Urine Squamous Epithelial Cells None seen <5 /hpf Urine Bacteria None seen None Seen /hpf Urine Glucose Normal Normal mg/dL Test 12/30/24 08:01 12/30/24 07:07 12/30/24 06:45 12/30/24 06:17 Range/Units POC Glucose 99 77 70-106 mg/dl Influenza Type A Antigen Negative Negative Influenza Type B Antigen Negative Negative SARS-CoV-2 Antigen (Rapid) Negative NEGATIVE White Blood Count 11.6 H 4.4-10.8 10^3/uL Red Blood Count 2.47 L 4.5-5.90 10^6/uL Hemoglobin 6.1 *L 13.5-17.5 g/dL Hematocrit 19.3 L 41.0-53.0 % Mean Corpuscular Volume 77.9 L 80.0-100.0 fL Mean Corpuscular Hemoglobin 24.6 L 28.0-32.0 pg Mean Corpuscular Hemoglobin Concent 31.5 L 32.0-36.0 g/dL Red Cell Distribution Width 22.0 H 11.8-14.3 % Platelet Count 344 140-450 10^3/uL Mean Platelet Volume 7.9 6.9-10.8 fL Neutrophils (%) (Auto) 37.0-80.0 % Lymphocytes (%) (Auto) 10.0-50.0 % Monocytes (%) (Auto) 0.0-12.0 % Basophils (%) (Auto) 0.0-2.0 % Neutrophils # (Auto) 1.6-8.6 10 ^3/uL Lymphocytes # (Auto) 0.4-5.4 10 ^3/uL Monocytes # (Auto) 0-1.3 10 ^3/uL Differential Total Cells Counted 100.0 100 Neutrophils % (Manual) 83 H 37.0-80.0 Band Neutrophils % (Manual) 4 Lymphocytes % (Manual) 5 L 10.0-50.0 Monocytes % (Manual) 7 0-12 Eosinophils % (Manual) 0 0-7 Basophils % (Manual) 0 0.0-2.0 Metamyelocytes % (manual) 0 Myelocytes % (Manual) 0 Promyelocytes % (Manual) 0 Blast Cells % (Manual) 0 Reactive Lymphocytes 1 Platelet Estimate Adequate Polychromasia Slight Hypochromasia (manual) Slight Anisocytosis (manual) Moderate Microcytosis Slight Sodium Level 137 136-145 mmol/L Potassium Level 4.0 3.5-5.1 mmol/L Chloride Level 104 98-107 mmol/L Carbon Dioxide Level 23 20-31 mmol/L Anion Gap 10 5-15 Blood Urea Nitrogen 79 H 9-23 mg/dL Creatinine 4.90 H 0.700-1.30 mg/dL Glomerular Filtration Rate Calc 12 >90 mL/min BUN/Creatinine Ratio 16.1 10.0-20.0 Serum Glucose 101 74-106 mg/dL Lactic Acid Level 1.3 0.4-2.0 mmol/L Calcium Level 8.6 L 8.7-10.4 mg/dL Total Bilirubin < 0.2 L 0.2-1.0 mg/dL Aspartate Amino Transferase (AST) 9 L 13-40 U/L Alanine Aminotransferase (ALT) < 9 7-40 U/L Alkaline Phosphatase 60 46-116 U/L Total Protein 6.6 5.7-8.2 g/dL Albumin 3.9 3.2-4.8 g/dL Test 12/30/24 06:13 Range/Units POC Glucose 98 70-106 mg/dl Assessment Acute kidney injury on Chronic kidney disease four likely hemodynamic mediated etiology in the setting blood loss anemia Acute blood loss anemia hemoglobin and 5 to 6 range Diabetes Hypoglycemia Uncontrolled hypertension Legally blind Recommendations Kidney ultrasound Bladder scan Status post 3 units of PRBCs Monitor renal function once hemoglobin is improved No emergent indication for dialysis as of now Check Chronic kidney disease panel u PCR we will follow closely Patient is on D10 drip for hypoglycemia Plan discussed with: Patient, Spouse SUHAIL SMITH MD Dec 31, 2024 15:05
--- NOTE | 2024-12-31 15:34 | DVH ---
US KIDNEY INDICATION: cheng TECHNIQUE: Multiple real-time sonographic images of the kidneys and bladder were obtained. COMPARISON: US KIDNEY on DOS: 08/27/24 FINDINGS: The right kidney measures 10.3 cm in length, which is normal in size. There is increased echogenicity of the right kidney. No hydronephrosis. The left kidney measures 10.1 cm in length, which is normal in size. There is increased echogenicity of the left kidney. No hydronephrosis. No large intraluminal masses are seen in the bladder. Prior to voiding the bladder volume measures volume 93.9 cc. Patient had no urge to void IMPRESSION: 1. Right kidney measures 10.3 cm; left kidney measures 10.1 cm. 2. No hydronephrosis bilaterally 3. Increased echogenicity to the renal cortex bilaterally. 4. Patient had no urge to void
[2024-12-31] MEDS: FUROSEMIDE 100 MG/10ML VIAL IV ONE (15:44)
--- NOTE | 2024-12-31 16:57 | DVHPN2 ---
Progress Note - Dictate Date Seen: Dec 31, 2024 Medical Necessity Reason Pt with a Central, PICC or Fol: No Subjective His D10 sugars solution being off for few hours this afternoon. Blood sugars are in the 150 range. His mentation is back to normal. He is asking when he can go home. vital signs Vital Sign Date Time Temp Pulse Resp B/P (MAP) Pulse Ox O2 Delivery O2 Flow Rate FiO2 12/31/24 16:00 81 17 146/66 (92) 94 12/31/24 10:36 98.5 98.5 12/31/24 08:00 Nasal Cannula* 2 28 Total Intake and Output 12/30/24 12/30/24 12/31/24 15:00 23:00 07:00 Intake Total 375 ml 1642 ml 1155 ml Output Total 50 ml Balance 375 ml 1592 ml 1155 ml medications Current Medications Medications Dose Ordered Sig/Jazmyn Route Start Time Stop Time Status Last Admin Dose Admin Nitroglycerin 0.4 mg Q5MINP PRN SL 12/30/24 14:45 Morphine Sulfate 2 mg Q30M PRN IV 12/30/24 14:45 Ferrous Sulfate 300 mg DAILY PO 12/31/24 10:00 12/31/24 10:45 300 MG Ascorbic Acid 500 mg DAILY PO 12/31/24 10:00 12/31/24 10:45 500 MG Nifedipine 60 mg DAILY PO 12/31/24 10:00 12/31/24 10:46 60 MG Clonidine HCl 0.1 mg Q4HP PRN PO 12/30/24 14:45 Pantoprazole Sodium 40 mg BID@0600,1700 PO 12/30/24 17:00 12/31/24 06:26 40 MG Acetaminophen 650 mg Q6HPRN PRN PO 12/30/24 21:30 12/31/24 06:33 650 MG Ondansetron HCl 4 mg Q6HPRN PRN IV 12/30/24 21:30 Acetaminophen/ Hydrocodone Bitart 1 tab Q6HPRN PRN PO 12/30/24 21:45 12/31/24 01:10 1 TAB Ceftriaxone Sodium 50 ml @ 100 mls/hr DAILY@09 IV 12/30/24 23:00 12/31/24 10:38 100 MLS/HR Vancomycin HCl 0 ml @ 0 mls/hr PER PHARMACY IV 12/30/24 23:45 Furosemide 60 mg DAILY IV 01/01/25 10:00 objective Alert awake oriented to place and person comfortable in bed without distress. HEENT neck supple no JVD. Heart regular rate and rhythm. Lungs fair air movement without wheezes. Abdomen soft positive bowel sounds nontender. Extremities improved edema. laboratory and microbiology Laboratory Tests 12/31/24 12:57 12/31/24 04:03 Test 12/31/24 04:03 Range/Units Serum Glucose 154 H 74-106 mg/dL Assessment/Plan Monitor him overnight now that D10 solution is discontinued. Continued to check a Accu-Cheks every 2 hours. No insulin coverage for blood sugars below 250. If his blood sugars go below 80 we will give him an amp of D50 as needed. Monitor him overnight and if he remains stable with normal blood sugars plan to discharge him home tomorrow. Patient once again counseled and educated regarding completely stopping his metformin and glipizide which is causing his hypoglycemia due to his renal insufficiency. Problems(with codes): (1) Acute kidney injury (2) Hypoglycemia (3) End stage renal disease Plan discussed with: Patient, Other CC Plasma Assessment Blood Product Administration S: [id number] KIM HALLMAN MD Dec 31, 2024 16:57
[2025-01-01 05:25] LABS: Chloride 100 mmol/L (98-107)
[2025-01-01 05:26] LABS: Anion Gap 11 (5-15); Calcium 8.9 mg/dL (8.7-10.4); Carbon Dioxide 21 mmol/L (20-31)
[2025-01-01 05:30] LABS: Basophils # (auto) 0 10 ^3/uL (0-0.2); Eosinophils # (auto) 0.1 10 ^3/uL (0-0.8); Mean Corpuscular Volume 78.9 fL (80.0-100.0)
[2025-01-01 05:31] LABS: BUN/Creatinine Ratio 13.9 (10.0-20.0); Blood Urea Nitrogen 68 mg/dL (9-23); Glucose 117 mg/dL (74-106); Sodium 132 mmol/L (136-145)
[2025-01-01 05:32] LABS: Basophils % (auto) 0.2 % (0.0-2.0); Eosinophils % (auto) 0.7 % (0.0-7.0); Hematocrit 23.9 % (41.0-53.0); Hemoglobin 8.2 g/dL (13.5-17.5); Lymphocytes # (auto) 0.5 10 ^3/uL (0.4-5.4); Lymphocytes % (auto) 4.2 % (10.0-50.0); Mean Corpuscular Hemoglobin 27.2 pg (28.0-32.0); Mean Corpuscular Hgb Conc. 34.4 g/dL (32.0-36.0); Monocytes # (auto) 0.9 10 ^3/uL (0-1.3); Monocytes % (auto) 7.5 % (0.0-12.0); Neutrophils # (auto) 11.1 10 ^3/uL (1.6-8.6); Neutrophils % (auto) 87.4 % (37.0-80.0); Platelet Count (auto) 314 10^3/uL (140-450); Red Blood Cells 3.03 10^6/uL (4.5-5.90); White Blood Cell 12.7 10^3/uL (4.4-10.8)
[2025-01-01 05:36] LABS: Red Cell Distribution Width 20.7 % (11.8-14.3)
[2025-01-01 08:00] VITALS: TEMP 98.3
[2025-01-01] MEDS: FUROSEMIDE 100 MG/10ML VIAL IV SCH (10:36)
[2025-01-01] MEDS: LORazepam 2MG/ML-1ML VIAL IV ONE (10:36)
[2025-01-01] MEDS ORDERED: SITA50TA PO (11:03)
[2025-01-01] MEDS ORDERED: IRON100T PO (11:03)
--- NOTE | 2025-01-01 11:06 | DVHDS2 ---
Discharge Summary Date of Admission Dec 30, 2024 at 14:41 Date of Discharge: Jan 01, 2025 Labs/Diagnostic Data: Laboratory Results Test 01/01/25 09:50 01/01/25 04:47 12/31/24 04:03 12/30/24 23:16 POC Glucose 141 mg/dl (70-106) White Blood Count 12.7 10^3/uL (4.4-10.8) Red Blood Count 3.03 10^6/uL (4.5-5.90) Hemoglobin 8.2 g/dL (13.5-17.5) Hematocrit 23.9 % (41.0-53.0) Mean Corpuscular Volume 78.9 fL (80.0-100.0) Mean Corpuscular Hemoglobin 27.2 pg (28.0-32.0) Mean Corpuscular Hemoglobin Concent 34.4 g/dL (32.0-36.0) Red Cell Distribution Width 20.7 % (11.8-14.3) Platelet Count 314 10^3/uL (140-450) Mean Platelet Volume 7.5 fL (6.9-10.8) Neutrophils (%) (Auto) 87.4 % (37.0-80.0) Lymphocytes (%) (Auto) 4.2 % (10.0-50.0) Monocytes (%) (Auto) 7.5 % (0.0-12.0) Eosinophils (%) (Auto) 0.7 % (0.0-7.0) Basophils (%) (Auto) 0.2 % (0.0-2.0) Neutrophils # (Auto) 11.1 10 ^3/uL (1.6-8.6) Lymphocytes # (Auto) 0.5 10 ^3/uL (0.4-5.4) Monocytes # (Auto) 0.9 10 ^3/uL (0-1.3) Eosinophils # (Auto) 0.1 10 ^3/uL (0-0.8) Basophils # (Auto) 0 10 ^3/uL (0-0.2) Nucleated Red Blood Cells 0.0 % Sodium Level 132 mmol/L (136-145) Potassium Level 4.0 mmol/L (3.5-5.1) Chloride Level 100 mmol/L (98-107) Carbon Dioxide Level 21 mmol/L (20-31) Anion Gap 11 (5-15) Blood Urea Nitrogen 68 mg/dL (9-23) Creatinine 4.89 mg/dL (0.700-1.30) Glomerular Filtration Rate Calc 12 mL/min (>90) BUN/Creatinine Ratio 13.9 (10.0-20.0) Serum Glucose 117 mg/dL (74-106) Calcium Level 8.9 mg/dL (8.7-10.4) Random Vancomycin Level 20.6 ug/mL (5-10) Lactic Acid Level 0.6 mmol/L (0.4-2.0) Total Bilirubin 0.2 mg/dL (0.2-1.0) Aspartate Amino Transferase (AST) < 8 U/L (13-40) Alanine Aminotransferase (ALT) < 9 U/L (7-40) Alkaline Phosphatase 46 U/L (46-116) Total Protein 5.4 g/dL (5.7-8.2) Albumin 3.1 g/dL (3.2-4.8) B-Type Natriuretic Peptide 1517.85 pg/mL (0-100) Test 12/30/24 08:55 12/30/24 06:45 12/30/24 06:17 Urine Color Light-yellow (Yellow) Urine Clarity Clear (Clear) Urine pH 6.0 (5.0-9.0) Urine Specific [place] 1.009 (1.001-1.035) Urine Protein 1+ (Negative) Urine Ketones Negative (Negative) Urine Blood Negative /uL (Negative) Urine Nitrite Negative (Negative) Urine Bilirubin Negative (Negative) Urine Urobilinogen Normal mg/dL (Negative) Urine Leukocyte Esterase Negative /uL (Negative) Urine RBC <1 /hpf (0 - 3) Urine Microscopic WBC < 1 /HPF (0-3) Urine Squamous Epithelial Cells None seen /hpf (<5) Urine Bacteria None seen /hpf (None Seen) Urine Glucose Normal mg/dL (Normal) Influenza Type A Antigen Negative (Negative) Influenza Type B Antigen Negative (Negative) SARS-CoV-2 Antigen (Rapid) Negative (NEGATIVE) Differential Total Cells Counted 100.0 (100) Neutrophils % (Manual) 83 (37.0-80.0) Band Neutrophils % (Manual) 4 Lymphocytes % (Manual) 5 (10.0-50.0) Monocytes % (Manual) 7 (0-12) Eosinophils % (Manual) 0 (0-7) Basophils % (Manual) 0 (0.0-2.0) Metamyelocytes % (manual) 0 Myelocytes % (Manual) 0 Promyelocytes % (Manual) 0 Blast Cells % (Manual) 0 Reactive Lymphocytes 1 Platelet Estimate Adequate Polychromasia Slight Hypochromasia (manual) Slight Anisocytosis (manual) Moderate Microcytosis Slight Other Laboratory Tests 01/01/25 04:47 Final Diagnosis/Problems List Hypoglycemia due to metformin and glipizide, dm2, ckd 4, anemia Discharge Disposition: Home Discharge Instruct/Medications Diet: Consistent carbohydrate, Cardiac 2g Na,low cholest Activity: No Restrictions, As Tolerated Follow Up/Referral: Primary doctor next week for blood sugar checks and medication management. with /[place] [facility] for ckd/anemia 2 weeks Medications: STOP taking Metfromin and Gilipizide completely due to low sugars and kindey problems. START taking other diabeitc medication as prescribed and iron tabs as prescribed for anemia. Discharge Statement: "Patient was advised to return to the ER or call 911 if any headaches, dizziness, shortness of breath, chest pain, abdominal pain, bleeding, fevers, or worsening of medical condition. Patient was counseled about treatment plan, medications, possible side effects, patientverbalized understanding. All questions were answered to the best of my ability. This discharge took greater then 30 minutes in planning, reviewing documentation, counseling the patient, and discussing with other team members." ASSESSMENT ASSESSMENT Assessment Hypoglycemia due to metformin and glipizide, dm2, ckd 4, anemia KIM HALLMAN MD Jan 01, 2025 11:06
[2025-01-01 12:00] VITALS: BP 167/77; PULSE 86; RESP 16; O2SAT 95
--- NOTE | 2025-01-01 12:51 | DVHPN2 ---
Progress Note Date Seen: Jan 01, 2025 Medical Necessity Reason Pt with a Central, PICC or Fol: No Subjective Patient reports: No new complaints Other Systems: Patient seen and examined by myself today in follow-up Objective vital signs Vital Sign Date Time Temp Pulse Resp B/P (MAP) Pulse Ox O2 Delivery O2 Flow Rate FiO2 01/01/25 12:00 86 01/01/25 11:00 20 160/82 (108) 95 01/01/25 08:52 Room Air* 0 21 01/01/25 08:00 98.3 98.3 Total Intake and Output 12/31/24 12/31/24 01/01/25 15:00 23:00 07:00 Intake Total 1665 ml Output Total 100 ml 250 ml Balance 1565 ml -250 ml medications Current Medications Medications Dose Ordered Sig/Jazmyn Route Start Time Stop Time Status Last Admin Dose Admin Nitroglycerin 0.4 mg Q5MINP PRN SL 12/30/24 14:45 Morphine Sulfate 2 mg Q30M PRN IV 12/30/24 14:45 Ferrous Sulfate 300 mg DAILY PO 12/31/24 10:00 01/01/25 10:36 300 MG Ascorbic Acid 500 mg DAILY PO 12/31/24 10:00 01/01/25 10:37 500 MG Nifedipine 60 mg DAILY PO 12/31/24 10:00 01/01/25 10:37 60 MG Clonidine HCl 0.1 mg Q4HP PRN PO 12/30/24 14:45 Pantoprazole Sodium 40 mg BID@0600,1700 PO 12/30/24 17:00 01/01/25 06:15 40 MG Acetaminophen 650 mg Q6HPRN PRN PO 12/30/24 21:30 12/31/24 06:33 650 MG Ondansetron HCl 4 mg Q6HPRN PRN IV 12/30/24 21:30 Acetaminophen/ Hydrocodone Bitart 1 tab Q6HPRN PRN PO 12/30/24 21:45 01/01/25 04:13 1 TAB Ceftriaxone Sodium 50 ml @ 100 mls/hr DAILY@09 IV 12/30/24 23:00 01/01/25 10:36 100 MLS/HR Vancomycin HCl 0 ml @ 0 mls/hr PER PHARMACY IV 12/30/24 23:45 Furosemide 60 mg DAILY IV 01/01/25 10:00 01/01/25 10:36 60 MG Examination: LUNGS:Normal, CVS:Normal, MSK:Normal laboratory and microbiology Laboratory Tests 01/01/25 04:47 Test 01/01/25 04:47 Range/Units Serum Glucose 117 H 74-106 mg/dL Microbiology Date/Time Source Procedure Growth Status 12/30/24 06:17 Blood Blood Culture - Preliminary Resulted Problem List/Assessment/Plan Problem List/Assessment/Plan Acute kidney injury on Chronic kidney disease 4 likely hemodynamic mediated etiology in the setting blood loss anemia Acute blood loss anemia hemoglobin and 5 to 6 range Vancomycin nephrotoxicity Diabetes mellitus type 2 Hypoglycemia status post D10 IV Uncontrolled hypertension Legally blind Recommendations Kidney function slightly worsened today Kidney ultrasound showed no hydronephrosis Packed red blood cell transfusion p.r.n. GI consult Renal diet Blood pressure control Check phosphorus 25 hydroxyvitamin D and PTH We will continue to follow up Plan discussed with: Patient CC Plasma Assessment Blood Product Administration S: [id number] ROBE MACEDO MD Jan 01, 2025 12:51
[2025-01-01 13:29] LABS: Magnesium 1.9 mg/dL (1.6-2.6)
[2025-01-01 13:31] LABS: Phosphorus 4.8 mg/dL (2.4-5.1)
== END 2025-01-01 12:46 | disposition home health service (06) | DRG 638 ==
LOC: ER 04:01 → EDBD 04:01 → UNDOADMIN 11:12 → OVERFLOW 11:12
PROVIDERS: ADMIT Hospitalist; ATTEND Hospitalist
PROC: 30233N1 Transfusion of Nonautologous Red Blood Cells into Peripheral Vein, Percutaneous Approach (ICD-10-PCS; principal; 2024-12-30)
DX: E11.649 Type 2 diabetes mellitus with hypoglycemia without coma (principal); D62 Acute posthemorrhagic anemia; I12.0 Hypertensive chronic kidney disease with stage 5 chronic kidney disease or end stage renal disease; T38.3X5A Adverse effect of insulin and oral hypoglycemic [antidiabetic] drugs, initial encounter; N18.6 End stage renal disease; N17.9 Acute kidney failure, unspecified; E11.22 Type 2 diabetes mellitus with diabetic chronic kidney disease; D63.1 Anemia in chronic kidney disease; H54.8 Legal blindness, as defined in USA; Z79.899 Other long term (current) drug therapy; Z83.3 Family history of diabetes mellitus; Z82.49 Family history of ischemic heart disease and other diseases of the circulatory system
CPT/HCPCS: 36415; 36430; 71045; 76775; 80048; 80053; 80202; 81001; 82306; 82962; 83605; 83735; 83880; 83970; 84100; 85007; 85014; 85018; 85025; 85027; 86850; 86900; 86901; 86920; 87040; 87081; 87426; 87804; 96361; 96374; 96375; 96376; 99291; G0378